=== PATIENT | female | born 1975 | race African-American/Black ===

== ENCOUNTER 2021-09-13 13:43 | Emergency (ER) | payer SELFPAY ==
--- OUTSIDE RECORDS SUMMARY | 2021-09-13 13:45 | XMS REPORT | Continuity of Care Document ---
:1975 Author Organization [facility] t Address [address] [place] [address] Care Team Providers Name Role Phone Pcp, Does Not Have A Primary Care Physician Justin JIMENEZ S Attending Clinician Payers Payer Name Policy Type Policy Number Effective Date Expiration Date S yamileth HIM BCBS BLUE [id number] 2018 ADVANTAGE HMO 00:00:00 Problems Condition Condition Condition Status Onset Resolution Last Treating Co mments Source Name Details Category Date Date Treatment Clinician Date Trichomona Trichomona Disease Active 2016-05 U nivers l l 0-28 ity [place] [facility] Hot Hot Disease Active 2016-05 Univers flashes flashes 0-26 ity of 00:00: [address] Tobacco Tobacco Disease Active 2016-05 Univers use use 0-26 ity of disorder disorder 00:00: [place] [facility] Yeast Yeast Disease Active Univers infection infection 01-14 ity of 00:00: [address] Irregular Irregular Disease Active Uni vers menstrual menstrual 01-10 ity of cycle cycle 00:00: [place] [facility] Dysuria Dysuria Disease Active Univers 01-10 ity of 00:00: [address] Tubal Tubal Disease Active Univers ligation ligation 01-10 ity of status status 00:00: [place] [facility] Thyromegal Thyromegal Disease Active U nivers y y 01-10 ity of 00:00: [place] 00 [facility] Allergies, Adverse Reactions, Alerts Allergy Allergy Status Severity Reaction(s) Onset Inactive Treating Comm ents Source Name Type Date Date Clinician NO KNOWN Drug Active Univers ALLERGIE Class ity of S [facility] Social History Social Habit Start Date Stop Date Quantity Comments Source History of Cigarette Smoker Universi ty of tobacco use [facility] Alcohol intake 2017-03-08 2017-03-08 Current drinker Unive rsity of 00:00:00 00:00:00 of alcohol [facility] (finding) [place] Sex Assigned At [birth year] Universit y of 00:00:00 00:00:00 [facility] Smoking Status Start Date Stop Date Source Current every day smoker 2017-01-10 00:00:00 Uni versity of [facility] Medications Ordered Filled Start Stop Current Ordering Indication Dosage Frequency Signature Comments Components Source Medication Medication Date Date Medication? Clinician (SIG) Name Name ibuprofen Yes [id number] 800mg Take 1 U nivers 800 mg 5-27 tablet by ity of tablet 00:00: mouth [place] 00 every 8 Medical (eight) Branch hours. acetaminoph Yes [id number] 1{tbl} Take 1-2 Univers en-codeine 5-27 tablets by ity of 300-30 mg 00:00: mouth [place] tablet 00 every 4 Medical (four) Branch hours as needed for Pain (scale 4-6). amoxicillin Yes [id number] 500mg Take 1 Univers 500 mg 5-27 capsule by ity of capsule 00:00: mouth 3 [place] 00 (three) Medical times Branch daily. traMADOL 2016-05 Yes 50mg Take 1 Univers (ULTRAM) 50 2-16 tablet by ity of mg tablet 00:00: mouth [place] 00 every 6 Medical (six) Branch hours as needed for Pain (scale 7-10). Procedures This patient has no known procedures. Encounters Start End Encounter Admission Attending Care Care Encounter Source Date/Time Date/Time Type Type Clinicians Facility Department ID 2021-03-13 Emergency [facility] [id number] Univers 03:15:38 ity of [facility] 2021-02-09 2021-02-09 Emergency [facility] [id number] [facility] 23:31:00 23:32:00 Tremaine Welch [id number] Rk [id number] [facility] [id number] [facility] 084 Branch Results This patient has no known results.
[2021-09-13] MEDS ORDERED: ASPIRIN 81 MG CHEWABLE TABLET ONE (14:08)
[2021-09-13] MEDS ORDERED: NA CHLORIDE 0.9% 1,000 ML ONE (14:08)
[2021-09-13 14:10] LABS: Hematocrit 39.7 % (36.0-45.0); Lymphocytes % 42.3 % (15.3-44.8); MPV 8.2 fL (7.6-11.3)
[2021-09-13 14:14] LABS: Protime INR 0.92
--- NOTE | 2021-09-13 14:27 | RAD REPORT ---
EXAM DESCRIPTION: RAD - Chest Single View - 09/13/2021 2:22 pm CLINICAL HISTORY: CHEST PAIN COMPARISON: No comparisons FINDINGS: Lines: None. Lungs: No evidence of edema or pneumonia. Pleural: No significant pleural effusions or pneumothorax. Cardiac: Cardiomegaly. Bones: No acute fractures. Other: Calcified mediastinal lymph nodes. IMPRESSION: No acute cardiopulmonary disease.
[2021-09-13 14:31] LABS: Albumin 3.7 g/dL (3.4-5.0); Bilirubin Direct 0.1 mg/dL (0-0.2); Bilirubin Total 0.4 mg/dL (0.2-1.0); Magnesium 2.1 mg/dL (1.8-2.4); Protein, Total 7.2 g/dL (6.4-8.2); Troponin High Sensitivity 5.1 pg/mL (<58.9)
--- NOTE | 2021-09-13 15:34 | EDPHYS ---
Physician Documentation [facility] Name: Ayesha Zuñiga Age: 46 yrs Sex: Female : 1975 Arrival Date: 09/13/2021 Time: 13:44 Bed 7 Private MD: ED Physician Edison Bee HPI: 09/13 15:23 This 46 yrs old Black Female presents to ER via Ambulatory with complaints of Chest praful Pain. 15:23 The patient or guardian reports chest pain that is located primarily in the anterior praful chest wall, right. Onset: 1 week(s) ago. The pain radiates to. Associated signs and symptoms: Pertinent positives: None. The chest pain is described as aching. Duration: The patient or guardian reports a single episode, that is still ongoing, but improving, The patient or guardian reports multiple episodes. Modifying factors: The symptoms are alleviated by remaining still, the symptoms are aggravated by deep breath, palpation of area. Severity of pain: At its worst the pain was mild in the emergency department the pain is unchanged. The patient has experienced similar episodes in the past, multiple times. 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 - Social history:: Smoking status: Patient reports the use of cigarette tobacco products, smokes one pack cigarettes per day. - Family history:: not pertinent. ROS: 15:23 Constitutional: Negative for fever, chills, and weight loss, Eyes: Negative for injury, praful pain, redness, and discharge, ENT: Negative for injury, pain, and discharge, Neck: Negative for injury, pain, and swelling, Respiratory: Negative for shortness of breath, cough, wheezing, and pleuritic chest pain, Abdomen/GI: Negative for abdominal pain, nausea, vomiting, diarrhea, and constipation, Back: Negative for injury and pain, : Negative for injury, bleeding, discharge, and swelling, MS/Extremity: Negative for injury and deformity, Skin: Negative for injury, rash, and discoloration, Neuro: Negative for headache, weakness, numbness, tingling, and seizure, Psych: Negative for depression, anxiety, suicide ideation, homicidal ideation, and hallucinations, Allergy/Immunology: Negative for hives, rash, and allergies, Endocrine: Negative for neck swelling, polydipsia, polyuria, polyphagia, and marked weight changes, Hematologic/Lymphatic: Negative for swollen nodes, abnormal bleeding, and unusual bruising. 15:23 Cardiovascular: Positive for chest pain, of the right clavicle and anterior aspect of right upper chest. Exam: 15:23 Constitutional: This is a well developed, well nourished patient who is awake, alert, praful and in no acute distress. Head/Face: Normocephalic, atraumatic. Eyes: Pupils equal round and reactive to light, extra-ocular motions intact. Lids and lashes normal. Conjunctiva and sclera are non-icteric and not injected. Cornea within normal limits. Periorbital areas with no swelling, redness, or edema. ENT: Nares patent. No nasal discharge, no septal abnormalities noted. Tympanic membranes are normal and external auditory canals are clear. Oropharynx with no redness, swelling, or masses, exudates, or evidence of obstruction, uvula midline. Mucous membranes moist. Neck: Trachea midline, no thyromegaly or masses palpated, and no cervical lymphadenopathy. Supple, full range of motion without nuchal rigidity, or vertebral point tenderness. No Meningismus. Cardiovascular: Regular rate and rhythm with a normal S1 and S2. No gallops, murmurs, or rubs. Normal PMI, no JVD. No pulse deficits. Abdomen/GI: Soft, non-tender, with normal bowel sounds. No distension or tympany. No guarding or rebound. No evidence of tenderness throughout. Back: No spinal tenderness. No costovertebral tenderness. Full range of motion. Skin: Warm, dry with normal turgor. Normal color with no rashes, no lesions, and no evidence of cellulitis. MS/ Extremity: Pulses equal, no cyanosis. Neurovascular intact. Full, normal range of motion. Neuro: Awake and alert, GCS 15, oriented to person, place, time, and situation. Cranial nerves II-XII grossly intact. Motor strength 5/5 in all extremities. Sensory grossly intact. Cerebellar exam normal. Normal gait. 15:23 Neck: External neck: is normal, C-spine: appears grossly normal, no acute changes, Thyroid: appears normal, Trachea: is midline with no obvious abnormalities, ROM/movement: is normal, no acute changes, Lymph nodes: no appreciated lymphadenopathy. 15:36 ECG was reviewed by the Attending Physician. [facility] Vital Signs: 13:52 BP 145 / 73; Pulse 61; Resp 17; Temp 97.6; Pulse Ox 100% ; Weight 104.33 kg; Height 5 jl7 ft. 9 in. (175.26 cm); Pain 8/10; 14:00 BP 112 / 71; Pulse 56; Resp 15; Pulse Ox 100% ; jl7 14:30 BP 109 / 76; Pulse 51; Resp 15; Pulse Ox 100% ; jl7 15:31 BP 121 / 72; Pulse 46; Resp 15; Pulse Ox 100% ; jl7 13:52 Body Mass Index 33.96 (104.33 kg, 175.26 cm) jl7 MDM: 13:46 Patient medically screened. [facility] 15:23 Differential diagnosis: abnormal EKG, acute myocardial infarction, acute pericarditis, praful anxiety, chest wall pain, esophagitis, pancreatitis, pleurisy, pneumonia, pneumothorax, pulmonary embolus, stable angina, unstable angina. HEART Score: History: Slightly Suspicious (0), ECG: Normal (0), Age: > 45 and < 65 years (1), Risk Factors: 1 or 2 risk factors (1), [Active Smoker] [+ Family HX] Troponin: < or = 1 x Normal Limit (0). The patient was given aspirin in the Emergency Department. The patient's deep vein thrombosis risk score was calculated as follows: Total Score: 0. This patient was found to be at low risk for a deep vein thrombosis by using the Well's assessment criteria. The patient's pulmonary embolism risk score was calculated as follows: Total Score: 0-2 points. This patient was found to be at low risk for a pulmonary embolism by using the Well's assessment criteria. YUNG Risk Score: TOTAL SCORE = 0. Data reviewed: vital signs, nurses notes, lab test result(s), EKG, radiologic studies, plain films. Data interpreted: secured entrance monitor: rate is 67 beats/min, rhythm is regular, Pulse oximetry: on room air is 100 %. Test interpretation: by ED physician or midlevel provider: ECG, plain radiologic studies. Counseling: I had a detailed discussion with the patient and/or guardian regarding: the historical points, exam findings, and any diagnostic results supporting the discharge/admit diagnosis, lab results, radiology results, the need for outpatient follow up, for definitive care, a frontend engineer, a family practitioner. 09/13 13:49 Order name: Basic Metabolic Panel; Complete Time: 14:39 [facility] 09/13 13:49 Order name: CBC with Diff; Complete Time: 14:30 [facility] 09/13 13:49 Order name: D-Dimer; Complete Time: 14:30 [facility] 09/13 13:49 Order name: LFT's; Complete Time: 14:39 [facility] 09/13 13:49 Order name: Magnesium; Complete Time: 14:39 [facility] 09/13 13:49 Order name: NT PRO-BNP; Complete Time: 14:39 [facility] 09/13 13:49 Order name: PT-INR; Complete Time: 14:30 [facility] 09/13 13:49 Order name: Troponin HS; Complete Time: 14:39 [facility] 09/13 13:49 Order name: XRAY Chest (1 view); Complete Time: 14:30 [facility] 09/13 13:49 Order name: Lipase; Complete Time: 14:39 [facility] 09/13 13:49 Order name: SARS-COV-2 RT PCR (Document "Date of Onset" if Symptomatic) [facility] 09/13 13:49 Order name: EKG; Complete Time: 13:49 [facility] 09/13 13:49 Order name: Cardiac monitoring; Complete Time: 14:00 [facility] 09/13 13:49 Order name: EKG - Nurse/Tech; Complete Time: 14:00 [facility] 09/13 13:49 Order name: IV Saline Lock; Complete Time: 14:00 [facility] 09/13 13:49 Order name: Labs collected and sent; Complete Time: 14:00 [facility] 09/13 13:49 Order name: O2 Per Protocol; Complete Time: 14:00 [facility] 09/13 13:49 Order name: O2 Sat Monitoring; Complete Time: 14:00 [facility] EC:36 Rate is 59 beats/min. Rhythm is regular. QRS [place] is Normal. LA interval is normal. QRS praful interval is normal. QT interval is normal. No Q waves. T waves are Normal. No ST changes noted. Clinical impression: Sinus bradycardia and No evidence of ischemia. Interpreted by me. Reviewed by me. Administered Medications: 15:35 Discontinued: NS 0.9% 1000 ml IV at 125 ml/hr continuous 7 14:02 Not Given (Duplicate Order): NS 0.9% 1000 ml IV at 125 ml/hr continuous [facility] 14:09 Drug: Aspirin Chewable Tablet 324 mg Route: PO; vg1 15:33 Follow up: Response: No adverse reaction jl 14:09 Drug: NS 0.9% 1000 ml Route: IV; Rate: 125 ml/hr; Site: right antecubital; vg1 15:49 Follow up: Response: No adverse reaction jl7 Disposition Summary: 09/13/21 15:33 Discharge Ordered Location: Home [facility] Problem: new praful Symptoms: have improved praful Condition: Stable praful Diagnosis - Chest pain on breathing praful - Tobacco abuse counseling praful - Tobacco use praful Followup: praful - With: Private Physician - When: 2 - 3 days - Reason: Recheck today's complaints, Continuance of care, Re-evaluation by your physician Followup: praful - With: Ramesh Nieves MD - When: 2 - 3 days - Reason: Recheck today's complaints, Continuance of care, Re-evaluation by your physician Discharge Instructions: - Discharge Summary Sheet praful - Nonspecific Chest Pain, Adult praful - Chest Wall Pain praful - Steps to Quit Smoking praful - Health Risks of Smoking praful - Aspirin and Your Heart praful Forms: - Medication Reconciliation Form [facility] - Thank You Letter praful - Antibiotic Education praful - Prescription Opioid Use praful - Work release form [facility] Prescriptions: - Tylenol-Codeine #3 300 mg-30 mg Oral - take 2 tablet by ORAL route every 6 hours; 18 tablet; Refills: 0, Product [facility] Selection Permitted Signatures: Dispatcher [employer] Edison Alvarez MD MD cha Leal, Jahala, RN RN jl7 Janeen Lewis RN RN vg1
--- NOTE | 2021-09-13 15:34 | ER ---
Nurse's Notes [facility] Name: Ayesha Zuñiga Age: 46 yrs Sex: Female : 1975 Arrival Date: 09/13/2021 Time: 13:44 Bed 7 Private MD: Diagnosis: Chest pain on breathing;Tobacco abuse counseling;Tobacco use Presentation: 09/13 13:52 Chief complaint: Patient states: Non-radiating, constant right-sided chest wall pain x jl7 2-3 weeks, worsening today, worse with right arm movement and after palpation, denies trauma, denies SOB. Coronavirus screen: At this time, the client does not indicate any symptoms associated with coronavirus-19. Ebola Screen: No symptoms or risks identified at this time. Initial Sepsis Screen: Does the patient meet any 2 criteria? No. Patient's initial sepsis screen is negative. Does the patient have a suspected source of infection? No. Patient's initial sepsis screen is negative. Risk Assessment: Do you want to hurt yourself or someone else? Patient reports no desire to harm self or others. Onset of symptoms is unknown. 13:52 Method Of Arrival: Ambulatory jl7 13:52 Acuity: STAN 3 jl7 Triage Assessment: 13:54 General: Appears in no apparent distress. uncomfortable, Behavior is calm, cooperative, jl7 appropriate for age. Pain: Complains of pain in anterior aspect of right upper chest Pain does not radiate. Pain currently is 8 out of 10 on a pain scale. Is continuous. Neuro: Level of Consciousness is awake, alert, obeys commands, Oriented to person, place, time, situation. Cardiovascular: Patient's skin is warm and dry. Rhythm is sinus bradycardia Chest pain is located in right chest wall. Respiratory: Airway is patent Respiratory effort is even, unlabored, Respiratory pattern is regular, symmetrical. Derm: Skin is pink, warm \T\ dry. 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 - Social history:: Smoking status: Patient reports the use of cigarette tobacco products, smokes one pack cigarettes per day. - Family history:: not pertinent. Screenin:00 Abuse screen: Denies threats or abuse. Denies injuries from another. Nutritional jl7 screening: No deficits noted. Tuberculosis screening: No symptoms or risk factors identified. Fall Risk IV access (20 points). Total [place] Fall Scale indicates No Risk (0-24 pts). Assessment: 14:00 General: See triage assessment. jl7 14:00 Pain: Pain began x 3 weeks. jl7 15:15 Reassessment: ERD at bedside discussing results and POC. jl7 Vital Signs: 13:52 BP 145 / 73; Pulse 61; Resp 17; Temp 97.6; Pulse Ox 100% ; Weight 104.33 kg; Height 5 jl7 ft. 9 in. (175.26 cm); Pain 8/10; 14:00 BP 112 / 71; Pulse 56; Resp 15; Pulse Ox 100% ; jl7 14:30 BP 109 / 76; Pulse 51; Resp 15; Pulse Ox 100% ; jl7 15:31 BP 121 / 72; Pulse 46; Resp 15; Pulse Ox 100% ; jl7 13:52 Body Mass Index 33.96 (104.33 kg, 175.26 cm) jl7 ED Course: 13:44 Patient arrived in ED. as 13:45 Jacky Amor RN is Primary Nurse. jl7 13:46 Edison Bee MD is Attending Physician. praful 13:54 Triage completed. jl7 14:00 Arm band placed on right wrist. jl7 14:00 Patient has correct armband on for positive identification. Placed in gown. Bed in low jl7 position. Call light in reach. Side rails up X 1. Client placed on continuous cardiac and pulse oximetry monitoring. NIBP monitoring applied. 14:00 Initial lab(s) drawn, by me, sent to lab. COVID swab sent to lab. Inserted saline lock: vg1 20 gauge in right antecubital area, using aseptic technique. Blood collected. 14:00 Patient maintains SpO2 saturation greater than 95% on room air. jl7 14:23 XRAY Chest (1 view) In Process Unspecified. EDMS 15:33 Ramesh Nieves MD is Referral Physician. praful 15:48 No provider procedures requiring assistance completed. IV discontinued, intact, jl7 bleeding controlled, No redness/swelling at site. Pressure dressing applied. Administered Medications: 15:35 Discontinued: NS 0.9% 1000 ml IV at 125 ml/hr continuous 7 14:02 Not Given (Duplicate Order): NS 0.9% 1000 ml IV at 125 ml/hr continuous praful 14:09 Drug: Aspirin Chewable Tablet 324 mg Route: PO; vg1 15:33 Follow up: Response: No adverse reaction [facility] 14:09 Drug: NS 0.9% 1000 ml Route: IV; Rate: 125 ml/hr; Site: right antecubital; vg1 15:49 Follow up: Response: No adverse reaction jl7 Outcome: 15:33 Discharge ordered by . praful 15:48 Discharged to home ambulatory. garcia 15:48 Condition: stable 15:48 Discharge instructions given to patient, Instructed on discharge instructions, follow up and referral plans. medication usage, Demonstrated understanding of instructions, follow-up care, medications, Prescriptions given X 1. 15:53 Patient left the ED. 7 Signatures: Dispatcher [employer] EDLA Edison Bee MD MD cha Martinez, Amelia as Leal, Jahala, RN RN jl7 Janeen Lewis RN RN vg1
[2021-09-13 16:40] VITALS: TEMP 97.6; O2SAT 100
[2021-09-13 16:44] VITALS: BP 121/72
--- NOTE | 2021-09-14 14:35 | EKG ---
Test Date: 2021-09-13 Test Time: 13:53:58 Hvac Instructor: JOE MEASUREMENT RESULTS: Intervals: Rate: 59 CA: 148 QRSD: 82 QT: 398 QTc: 394 [place]: P: 52 CA: 148 QRS: 87 T: 77 INTERPRETIVE STATEMENTS: Sinus bradycardia Otherwise normal ECG No previous ECG available for comparison Electronically Signed On 09-14-21 14:32:24 CDT by Ramesh Nieves
== END 2021-09-13 15:53 | disposition home or self-care (01) ==
LOC: ER 13:43
DX: R07.1 Chest pain on breathing (principal); Z72.0 Tobacco use; Z71.6 Tobacco abuse counseling; Z20.822 Contact with and (suspected) exposure to COVID-19
CPT/HCPCS: 36415; 71045; 80048; 80076; 83690; 83735; 83880; 84484; 85025; 85379; 85610; 93005; 99285; J7030; U0003